=== PATIENT | female | born 1990 | race African-American/Black ===

== ENCOUNTER 2017-05-23 07:12 | Emergency (ER) | payer MEDICAID ==
[~2017-05-23] VITALS: Ht 152.4 cm; Wt 85.7 kg
[2017-05-23 07:48] VITALS: BP 124/93
== END 2017-05-23 08:02 | disposition home or self-care (01) ==
LOC: ER 07:12
DX: J02.9 Acute pharyngitis, unspecified (principal); Z88.0 Allergy status to penicillin

== ENCOUNTER 2017-06-30 05:59 | Emergency (ER) | payer MEDICAID ==
[~2017-06-30] VITALS: Ht 152.4 cm; Wt 85.7 kg
[2017-06-30 06:28] VITALS: BP 130/78
[2017-06-30] MEDS ORDERED: cefTRIAXone SOD 1,000 MG VL IM ONE (08:00)
[2017-06-30] MEDS ORDERED: ACETAMINOPHEN 500 MG TAB PO ONE (08:00)
== END 2017-06-30 08:31 | disposition home or self-care (01) ==
LOC: ER 05:59
DX: J03.90 Acute tonsillitis, unspecified (principal); Z88.0 Allergy status to penicillin
CPT/HCPCS: 96372; 99283; J0696